=== PATIENT | female | born 1980 | race Asian ===

== ENCOUNTER 2016-07-22 16:50 | Emergency (ER) | payer BC ==
[2016-07-22 17:12] VITALS: BP 139/94; PULSE 102; TEMP 98.5; BMI 36.3
[2016-07-22] MEDS ORDERED: FAMOTIDINE 20 MG/50 ML IVPB 50 ML IVPB ONE ×2 (17:12→17:24)
--- NOTE | 2016-07-22 17:29 | PDOC ---
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 The patient rates the pain currently as a 6/10, but throughout the day it got as bad as a 9/10. She reports an episode of diarrhea yesterday, but states she ate poorly beforehand. She also reports an associated headache. She tried to drink tea and take carmella seltzer with no relief. She reports that eating worsened her pain.She denies fever, chills, nausea, vomiting. She denies chest pain, SOB, dizziness. SHe denies recent travel, sick contacts. She denies alcohol, tobacco, or drug use. <Elva Smith - Last Filed: 07/22/16 17:43> - General History Source: Patient Exam Limitations: No Limitations <Emily Hein - Last Filed: 07/23/16 18:57> - General Chief Complaint: Pain Stated Complaint: ABDOMINAL PAIN Time Seen by Provider: 07/22/16 16:52 Past History <Elva Smith - Last Filed: 07/22/16 17:43> - Past Medical History Psychiatric Problems: Yes (anxiety,PTSD,panic attacks) - Psycho/Social/Smoking Cessation Hx Anxiety: Yes Suicidal Ideation: No Smoking History: Never smoked Hx Alcohol Use: No Drug/Substance Use Hx: No Substance Use Type: None <Emily Hein - Last Filed: 07/23/16 18:57> - Past Medical History Allergies/Adverse Reactions: Allergies Allergy/AdvReac Type Severity Reaction Status Date / Time sumatriptan [From Imitrex] Allergy Severe Low Blood Verified 11/19/15 16:13 Pressure sumatriptan succinate Allergy Severe Low Blood Verified 11/19/15 16:13 [From Imitrex] Pressure Home Medications: Ambulatory Orders Bupropion HCl [Wellbutrin Xl -] 150 mg PO DAILY 05/14/15 Clonazepam [Klonopin] 1 mg PO TID 05/14/15 Lamotrigine [Lamotrigine ER] 100 mg PO HS 11/19/15 Venlafaxine HCl ER [Effexor Xr -] 225 mg PO DAILY 11/19/15 Review of Systems - Review of Systems Able to Perform ROS?: Yes Comments:: 07/22/16 17:44 GENERAL/CONSTITUTIONAL: No: fever, chills, weakness HEAD, EYES, EARS, NOSE AND THROAT: No: change in vision, ear pain, discharge, sore throat, throat swelling. CARDIOVASCULAR: No: chest pain, lightheadedness, palpitations, syncope RESPIRATORY: No: cough, shortness of breath, wheezing, hemoptysis, stridor. GASTROINTESTINAL: (+) epigastric pain, diarrhea. No: nausea, vomiting, rectal bleeding, constipation. GENITOURINARY: No: dysuria, hematuria, frequency, urgency, flank pain. MUSCULOSKELETAL: No: back pain, neck pain, joint pain, muscle swelling or pain SKIN AND BREASTS: No: lesions, pallor, rash or easy bruising. NEUROLOGIC: (+) headache. No:vertigo, paresthesias, weakness ENDOCRINE: No: unexplained weight gain or loss HEMATOLOGIC/LYMPHATIC: No: anemia, easy bleeding, swelling nodes <Elva Smith - Last Filed: 07/22/16 17:43> *Physical Exam - Vital Signs Last Vital Signs Temp Pulse Resp BP Pulse Ox 98.5 F 102 H 16 139/94 96 07/22/16 16:52 07/22/16 16:52 07/22/16 16:52 07/22/16 16:52 07/22/16 16:52 - Physical Exam Comments: 07/22/16 17:44 GENERAL: The patient appears nervous. She is crying and shaking. HEAD: Normal with no signs of trauma. EYES: PERRLA, EOMI, sclera anicteric, conjunctiva clear. ENT: Ears normal, nares patent, oropharynx clear without exudates. Moist mucous membranes. NECK: Normal range of motion, supple without lymphadenopathy, JVD, or masses. LUNGS: Breath sounds equal, clear to auscultation bilaterally. No wheezes, and no crackles. HEART:Regular rate and rhythm, normal S1 and S2 without murmur, rub or gallop. ABDOMEN: (+) tender in RUQ and epigastrum, with no involuntary guarding or rebound. Soft, normoactive bowel sounds. EXTREMITIES: Normal range of motion, no edema. No clubbing or cyanosis. No erythema, or tenderness. NEUROLOGICAL: Cranial nerves II through XII grossly intact. Normal speech. No focal neurological deficits. MUSCULOSKELETAL: Back non-tender to palpation, no CVA tenderness SKIN: Warm, Dry, normal turgor, no rashes or lesions noted. <SmithHannahElva A - Last Filed: 07/22/16 17:43> - Vital Signs Last Vital Signs Temp Pulse Resp BP Pulse Ox 98.5 F 102 H 16 139/94 96 07/22/16 16:52 07/22/16 16:52 07/22/16 16:52 07/22/16 16:52 07/22/16 16:52 <Emily Hein - Last Filed: 07/23/16 18:57> ED Treatment Course - LABORATORY CBC & Chemistry Diagram: 07/22/16 17:30 07/22/16 17:30 <SarahElva A - Last Filed: 07/22/16 17:43> - LABORATORY CBC & Chemistry Diagram: 07/22/16 17:30 07/22/16 17:30 <Emily Hein - Last Filed: 07/23/16 18:57> Medical Decision Making - Medical Decision Making 07/22/16 17:19 A portion of this note was documented by scribe services under my direction. I have reviewed the details of the note, within reason, and agree with the documentation with the following case summary and management plan written by me. Nursing documentation reviewed and incorporated into medical decision making This is a 35 yo F with a history of PTSD, Depression who presents to the ER with a complaint of abdominal pain PT states she awoke with epigastric pain, described as sharp, rated 6/10 No vomiting, no constipation, no diarrhea, passing flatus No recent travel No ill contacts Pt denies prior abdominal surgery PT states she took Klonopin because she was so anxious On examination Pt is tremulous and tearful, she is anxious Heart: tachycardiac, regular Lungs: CTA Abd: epigastric tenderness to palpation, RUQ tenderness to palpation, no lower abdominal tenderness to palpation No involuntary guarding, no rebound Will do labs Pt is petrified about potentially having a CT scan Will plan to do RUQ U/S as pt has no lower abdominal tenderness Will give pepcid IV 03/24/17 18:14 Laboratory Tests 07/22/16 07/22/16 17:30 17:30 WBC 8.9 D Hgb 14.4 Hct 42.9 Plt Count 249 Sodium 132 L Potassium 3.4 L Chloride 100 Carbon Dioxide 26 BUN 7 Creatinine 0.7 Random Glucose 92 Pending US Pt signed out to Dr hernandes <Emily Hein - Last Filed: 07/23/16 18:57> *DC/Admit/Observation/Transfer - Attestations Scribe Attestion: 07/22/16 17:44 Documentation prepared by Elva Smith, acting as electromedical service engineer for Emily Hein MD. <Elva Smith - Last Filed: 07/22/16 17:43> <Emily Hein - Last Filed: 07/23/16 18:57> Diagnosis at time of Disposition: Gastritis - Discharge Dispostion Disposition: HOME Condition at time of disposition: Stable - Referrals Referrals: Joey Jimenes MD [Primary Care Provider] - 1 week Cleve Nieto MD [Staff Physician] - - Patient Instructions Printed Discharge Instructions: DI for Gastritis Additional Instructions: avoid high fat, spicy, acidic foods(small,frequent meals) avoid excessive coffee consumption Pepcid 20 mg daily followup with Dr Jimenes within 1 week followup with trucksmith(Dr Nieto) if you have persistent discomfort return to ER if you develop severe pain/vomiting/fever
[2016-07-22 17:54] LABS: BASOPHIL 1.5 % (0-2.0); EOSINOPHIL 1.5 % (0-4.5); MCH 28.8 pg (25.7-33.7); MCHC 33.6 g/dl (32.0-36.0); MEAN CELL VOLUME 85.8 fl (80-96); MEAN PLT VOLUME 7.6 fl (7.5-11.1); NEUTROPHILS 70.7 % (42.8-82.8); PLATELET COUNT 249 K/MM3 (134-434); RDW 12.7 % (11.6-15.6); WHITE BLOOD COUNT 8.9 K/mm3 (4.0-10.0)
[2016-07-22 18:03] LABS: ALBUMIN 3.9 g/dl (3.5-5.0); ALK PHOS 82 U/L (32-92); AMYLASE 54 U/L (25-125); ANION GAP 6 (8-16); BILIRUBIN,TOTAL 0.4 mg/dl (0.2-1.0); CALCIUM 8.4 mg/dl (8.4-10.2); CO2 26 mmol/L (22-28); CREATININE 0.7 mg/dl (0.6-1.3); GLUCOSE,RANDOM 92 mg/dl (74-106); SGOT/AST 31 U/L (10-42); SGPT/ALT 30 U/L (10-40); TOT PROT 6.9 g/dl (6.4-8.3)
[2016-07-22 19:09] LABS: PH,URINE 8.5 (4.5-8); URINE APPEARANCE Clear; URINE BILIRUBIN Negative (NEGATIVE); URINE BLOOD Negative (NEGATIVE); URINE GLUCOSE (UA) Negative (NEGATIVE); URINE KETONE Negative (NEGATIVE); URINE LEUK ESTERASE Negative (NEGATIVE); URINE NITRITE Negative (NEGATIVE); URINE PROTEIN Negative (NEGATIVE); URINE UROBILINOGEN 0.2 E.U/dl (0.2-1.0)
[2016-07-22 19:10] LABS: URINE COLOR YELLOW
--- NOTE | 2016-07-22 19:28 | PDOC ---
*Physical Exam - Vital Signs Last Vital Signs Temp Pulse Resp BP Pulse Ox 98.5 F 102 H 16 139/94 96 07/22/16 16:52 07/22/16 16:52 07/22/16 16:52 07/22/16 16:52 07/22/16 16:52 ED Treatment Course - LABORATORY CBC & Chemistry Diagram: 07/22/16 17:30 07/22/16 17:30 - ADDITIONAL ORDERS Additional order review: Laboratory Results 07/22/16 07/22/16 18:30 17:30 Sodium 132 L Potassium 3.4 L Chloride 100 Carbon Dioxide 26 Anion Gap 6 L BUN 7 Creatinine 0.7 Creat Clearance w eGFR > 60 Random Glucose 92 Calcium 8.4 Total Bilirubin 0.4 D AST 31 ALT 30 D Alkaline Phosphatase 82 Total Protein 6.9 Albumin 3.9 Total Amylase 54 Lipase 24 Urine Color Yellow Urine Appearance Clear Urine pH 8.5 H Ur Specific [place] 1.020 Urine Protein Negative Urine Glucose (UA) Negative Urine Ketones Negative Urine Blood Negative Urine Nitrite Negative Urine Bilirubin Negative Urine Urobilinogen 0.2 e.u/dl Ur Leukocyte Esterase Negative 07/22/16 17:30 RBC 5.00 MCV 85.8 MCHC 33.6 RDW 12.7 MPV 7.6 Neutrophils % 70.7 Lymphocytes % 20.6 Monocytes % 5.7 Eosinophils % 1.5 Basophils % 1.5 - Medications Given in the ED: ED Medications Discontinued Medications Generic Name Dose Route Start Last Admin Trade Name Freq PRN Reason Stop Dose Admin Famotidine/Sodium Chloride 50 mls @ 100 mls/hr 07/22/16 17:12 07/22/16 17:30 Pepcid 20 Mg Premixed Ivpb - IVPB 07/22/16 17:41 100 mls/hr ONCE ONE Administration Progress Note - Progress Note Progress Note: Care of this patient received from Dr. Hein. Ultrasound negative for gallstones or other abnormality. Laboratory evaluation essentially normal. Results discussed with the patient. Patient is anxious about possibility of intra-abdominal problems. All questions were answered and patient reassured that today's workup did not reveal any evidence of serious abnormality. Presentation most consistent with acute gastritis. Patient counseled regarding frequent, small meals with avoidance of high-fat/highly acidic foods. The patient states that she has been drinking more coffee than usual. It was suggested that she cut back on her coffee intake. She prefers to take [id number] H2 venessa rather than prescription strength. She should follow-up with her general doctor. She is also given referral information with Dr. Cleve Nieto, card runner since she has never had any GI workup. She should follow-up with him if she has persistent discomfort in the epigastrium or new abdominal complaints. *DC/Admit/Observation/Transfer Diagnosis at time of Disposition: Gastritis Qualifiers: Gastritis type: unspecified gastritis Chronicity: acute Gastritis bleeding: without bleeding Qualified Code(s): K29.00 - Acute gastritis without bleeding - Discharge Dispostion Disposition: HOME Condition at time of disposition: Stable - Referrals Referrals: Cleve Nieto MD [Staff Physician] - Joey Jimenes MD [Primary Care Provider] - 1 week - Patient Instructions Printed Discharge Instructions: DI for Gastritis Additional Instructions: avoid high fat, spicy, acidic foods(small,frequent meals) avoid excessive coffee consumption Pepcid 20 mg daily followup with Dr Jimenes within 1 week followup with card runner(Dr Nieto) if you have persistent discomfort return to ER if you develop severe pain/vomiting/fever - Post Discharge Activity
== END 2016-07-22 19:52 | disposition home or self-care (01) ==
LOC: FER 16:50
PROC: 3E033GC Introduction of Other Therapeutic Substance into Peripheral Vein, Percutaneous Approach (ICD-10-PCS; principal; 2016-07-22)
DX: K29.00 Acute gastritis without bleeding (principal)
CPT/HCPCS: 36415; 76700-TC; 80053; 81003; 82150; 83690; 85025; 87086; 99283-25

== ENCOUNTER 2021-11-28 12:30 | Emergency (ER) | payer BC, OTHER ==
[2021-11-28 12:48] VITALS: BP 120/74; PULSE 89; RESP 18; TEMP 98; BMI 42.9
== END 2021-11-28 14:15 | disposition home or self-care (01) ==
LOC: FER 12:30
DX: S93.401A Sprain of unspecified ligament of right ankle, initial encounter (principal); S83.412A Sprain of medial collateral ligament of left knee, initial encounter; W01.0XXA Fall on same level from slipping, tripping and stumbling without subsequent striking against object, initial encounter
CPT/HCPCS: 73562-TC-LT-FY; 73610-TC-RT-FY; 99284-25